=== PATIENT | male | born 1980 | race Caucasian/White ===

== ENCOUNTER 2017-05-17 11:44 | Inpatient (IN) | payer SELFPAY ==
[~2017-05-17] VITALS: Ht 188 cm; Wt 94.6 kg
[~2017-05-17 11:44] MED LIST: DOXYCYCLINE HY100 M1 PO; NOHOMEMEDS; VICODIN,LORT1 TABLET PO
[2017-05-17 14:13] LABS: HEMATOCRIT 47.7 % (38.0-50.0); MCH 30.6 PG (29.0-34.0); MCHC 32.9 G/DL (30.0-36.0); MEAN PLAT.VOLUME 9.2 uM^3 (9.0-12.4); PLATELET COUNT 337 K/uL (156-360); RBC DIS.WIDTH-CV 13.5 % (11.8-14.6); RBC DIS.WIDTH-SD 46.1 % (39-53); RED BLOOD COUNT 5.13 M/uL (4.00-5.50); WHITE BLOOD COUNT 8.3 K/uL (4.1-10.2)
[2017-05-17 14:27] LABS: CHLORIDE 108 mEq/L (99-109); POTASSIUM 4.2 mEq/L (3.7-5.4); SODIUM 142 mEq/L (136-147)
[2017-05-17 14:29] LABS: GLUCOSE 66 mg/dL (70-99)
[2017-05-17 14:30] LABS: ANION GAP 6 MEQ/L (2-14)
[2017-05-17 14:32] LABS: SERUM ETHYL ALCOHOL < 10 mg/dL
[2017-05-17 14:33] LABS: GFR ESTIMATE (CALCULATED) > 59 mL/min/; UREA NITROGEN (BUN) 11 mg/dL (9-23)
[2017-05-17 18:59] VITALS: BP 122/79
[2017-05-17 19:00] VITALS: BP 132/77
[2017-05-17 19:33] LABS: AMPHETAMINE NEGATIVE (500 ng/mL); BENZODIAZEPINES NEGATIVE (150 ng/mL); COCAINE PRESUMPTIVE POSITIVE (150 ng/mL); METHAMPHETAMINE NEGATIVE (500 ng/mL); OPIATES (MORPHINE) NEGATIVE (100 ng/mL); PHENCYCLIDINE NEGATIVE (25 ng/mL); THC CANNABINOIDS PRESUMPTIVE POSITIVE (50 ng/mL); TRICYCLIC ANTIDEPRESSANTS NEGATIVE (300 ng/mL)
[2017-05-17 19:34] LABS: ADD MEDTOX COMMENT Y; BARBITURATES NEGATIVE (200 ng/mL); INTERNAL CONTROLS VALID? YES; METHADONE NEGATIVE (200 ng/mL); OXYCODONE NEGATIVE (100 ng/mL); PROPOXYPHENE NEGATIVE (300 ng/mL)
[2017-05-18 07:51] VITALS: BP 113/68
[2017-05-18 15:25] VITALS: BP 136/80
[2017-05-19 07:38] VITALS: BP 117/56
[2017-05-19 15:39] VITALS: BP 112/72
[2017-05-20 08:24] VITALS: BP 90/52
[2017-05-20 11:40] VITALS: BP 111/68
[2017-05-20 13:13] VITALS: BP 111/68
[2017-05-20 15:52] VITALS: BP 116/71
[2017-05-21 07:37] VITALS: BP 85/60
[2017-05-21] MEDS ORDERED: ESCITALOPRAM OX20 MG PO (09:55)
[2017-05-21] MEDS ORDERED: GABAPENTIN100 MG PO (09:55)
== END 2017-05-21 11:23 | disposition home or self-care (01) | DRG 880 ==
LOC: EME 11:44 → EDOF 16:44 → 1WEST 16:44
DX: F41.8 Other specified anxiety disorders (principal); F12.90 Cannabis use, unspecified, uncomplicated; F14.10 Cocaine abuse, uncomplicated; F17.200 Nicotine dependence, unspecified, uncomplicated; R45.851 Suicidal ideations; F10.20 Alcohol dependence, uncomplicated
CPT/HCPCS: 80048; 84999; 85027; 90839; 97150 GO; 97166 GO; 99281; 99285; G0480

== ENCOUNTER 2018-06-22 12:42 | Emergency (ER) | payer OTHER ==
[~2018-06-22] VITALS: Ht 188 cm; Wt 86.7 kg
[~2018-06-22 12:42] MED LIST changes: +ESCITALOPRAM OX20 MG PO; +GABAPENTIN100 MG PO
[2018-06-22] MEDS ORDERED: ULTRAM50 MG PO (15:01)
[2018-06-22 15:12] VITALS: BP 139/79
== END 2018-06-22 15:14 | disposition home or self-care (01) ==
LOC: EME 12:42
DX: M79.604 Pain in right leg (principal); M79.605 Pain in left leg; M25.572 Pain in left ankle and joints of left foot; G89.29 Other chronic pain
CPT/HCPCS: 73564; 73590; 73610; 99281; 99284